=== PATIENT | male | born 1960 | race American Indian/Alaskan Native ===

== ENCOUNTER 2020-04-18 19:03 | Emergency (ER) | payer SELFPAY ==
[2020-04-18 19:56] VITALS: BP 118/78
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
--- NOTE | 2020-04-18 20:57 | XRay Report ---
RIGHT KNEE 3 VIEW(S) INDICATION / CLINICAL INFORMATION: right knee pain and swelling COMPARISON: None available. FINDINGS: BONES / JOINT(S): No acute fracture or subluxation. Chondrocalcinosis both menisci. Moderate knee eff usion. SOFT TISSUES: No significant abnormality. ADDITIONAL FINDINGS: None. Signer Name: Graham Sheldon MD Signed: 04/18/2020 8:52 PM Workstation Name: [id number]
== END 2020-04-18 21:31 | disposition home or self-care (01) ==
LOC: ED 19:03
DX: M25.461 Effusion, right knee (principal); F17.200 Nicotine dependence, unspecified, uncomplicated; Z79.899 Other long term (current) drug therapy
CPT/HCPCS: 99283